=== PATIENT | male | born 1975 | race Caucasian/White ===

== ENCOUNTER → 2017-01-13 | Outpatient (CLI) | payer OTHER ==
--- NOTE | ~2017-01-13 | ST ---
Unit #: [id number] #: [id number] Patient: BABITA RAMIREZ [id number] [address] [address] [id number] MR#: [id number] NAME: BABITA RAMIREZ : 1975 SEX: M STUDY DATE/TIME: 01/13/2017 UNIT: [facility] ROOM: STUDY DESCRIPTION: Stress ECG Attending Physician: Vidya Sheridan M.D. Referring Physician: Vidya Sheridan M.D. Primary Care Physician: Vidya Sheridan M.D. CARDIOLOGY REPORT PROCEDURE PERFORMED Stress ECG. INDICATION Chest discomfort. SUMMARY The patient exercised on a Live protocol to maximal effort. The patient completed 9 minutes, 5 seconds of exercise. The heart rate increased from 74 and blood pressure from 120/83 to 180/110, heart rate 164. Heart rate was 94%. There were no significant dysrhythmias. There were no ST changes at rest or stress. There was no chest pain noted. IMPRESSION 1. Good exercise tolerance. 2. Normal heart rate response. 3. High-normal blood pressure response. 4. Normal stress ECG. Dictated by... Leland Birch/malena TD: 01/13/2017 13:28 JOB #: [id number] CARDIOLOGY REPORT X Ihsan Gonsalez MD CARDIOLOGY REPORT
== END | disposition home or self-care (01) ==
LOC: CEKG 07:48
DX: I25.10 Atherosclerotic heart disease of native coronary artery without angina pectoris (principal); R53.83 Other fatigue
CPT/HCPCS: 93017